=== PATIENT | male | born 1975 | race Hispanic/Latino ===

== ENCOUNTER 2016-08-06 00:13 | Emergency (ER) | payer OTHER ==
[~2016-08-06] VITALS: Ht 144.8 cm; Wt 76.7 kg
[2016-08-06 00:55] LABS: EOSINOPHIL (%) 2.2 % (0-5); EOSINOPHIL COUNT 0.1 K/uL (0-0.3); HEMATOCRIT 44.5 % (38.0-50.0); IMMATURE GRANULOCYTE (%) 0.9 % (0.0-0.7); IMMATURE GRANULOCYTE COUNT 0.6 K/uL; LYMPHOCYTE COUNT 1.6 K/uL (1.0-2.8); MCH 31.4 PG (29.0-34.0); MCHC 35.1 G/DL (30.0-36.0); MCV 89.5 FL (86-99); MEAN PLAT.VOLUME 10.5 uM^3 (9.0-12.4); MONOCYTE (%) 10.4 % (3-12); MONOCYTE COUNT 0.7 K/uL (0-0.8); PLATELET COUNT 219 K/uL (156-360); RBC DIS.WIDTH-CV 12.9 % (11.8-14.6); RBC DIS.WIDTH-SD 41.2 % (39-53); RED BLOOD COUNT 4.97 M/uL (4.00-5.50); WHITE BLOOD COUNT 6.5 K/uL (4.1-10.2)
[2016-08-06 01:06] LABS: AMYLASE 24 IU/L (1-118); CHLORIDE 104 mEq/L (99-109); POTASSIUM 3.7 mEq/L (3.7-5.4); SODIUM 139 mEq/L (136-147)
[2016-08-06 01:07] LABS: GLUCOSE 127 mg/dL (70-99)
[2016-08-06 01:09] LABS: ANION GAP 15 MEQ/L (2-14)
[2016-08-06 01:11] LABS: GFR ESTIMATE (CALCULATED) > 59 mL/min/; SERUM ETHYL ALCOHOL 176 mg/dL
[2016-08-06 01:12] LABS: UREA NITROGEN (BUN) 9 mg/dL (9-23)
[2016-08-06 01:14] LABS: LIPASE 44 U/L (1.0-51.0)
[2016-08-06 02:58] LABS: TROP-I INTERPRETATION NEGATIVE; TROPONIN-I < 0.01 ng/mL (0.0-0.30)
[2016-08-06] MEDS ORDERED: NORCO 5/3251 TABLET PO (03:18)
[2016-08-06 03:39] VITALS: BP 123/71
[2016-08-06] MEDS ORDERED: ERYTHROMYC1 APPLICAT LEFT EYE (05:02)
== END 2016-08-06 04:10 | disposition home or self-care (01) ==
LOC: TRA 00:13 → EME 00:13 → EDBD 00:13 → TRA 04:10
PROVIDERS: Emergency Medicine
DX: S05.02XA Injury of conjunctiva and corneal abrasion without foreign body, left eye, initial encounter (principal); S20.219A Contusion of unspecified front wall of thorax, initial encounter; F10.129 Alcohol abuse with intoxication, unspecified; Y90.6 Blood alcohol level of 120-199 mg/100 ml; V49.40XA Driver injured in collision with unspecified motor vehicles in traffic accident, initial encounter
CPT/HCPCS: 70450; 70486; 71260; 72125; 72129; 72132; 74177; 80048; 81003; 82150; 83690; 84484; 85025; 86850; 86900; 86901; 93005; 99281; 99285; G0480; J2405; J3010; J7030

== ENCOUNTER 2016-08-12 13:25 | Emergency (ER) | payer OTHER ==
[~2016-08-12] VITALS: Ht 149.9 cm; Wt 73.8 kg
[~2016-08-12 13:25] MED LIST: ERYTHROMYC1 APPLICAT LEFT EYE; NORCO 5/3251 TABLET PO
[2016-08-12] MEDS ORDERED: MOTRIN600 MG PO (16:26)
[2016-08-12] MEDS ORDERED: NORCO 7.5/321 TABLET PO (16:26)
[2016-08-12] MEDS ORDERED: PREDNISONE20 MG PO (16:28)
[2016-08-12] MEDS ORDERED: ZITHROMAX250 MG PO (16:28)
[2016-08-12] MEDS ORDERED: PATADAY2.5 ML LEFT EYE (16:45)
[2016-08-12 18:00] VITALS: BP 139/81
== END 2016-08-12 18:02 | disposition home or self-care (01) ==
LOC: EME 13:25
DX: S22.41XA Multiple fractures of ribs, right side, initial encounter for closed fracture (principal); J18.0 Bronchopneumonia, unspecified organism; H10.45 Other chronic allergic conjunctivitis; V49.40XD Driver injured in collision with unspecified motor vehicles in traffic accident, subsequent encounter
CPT/HCPCS: 71250; 99281; 99284; J3010; J7512